=== PATIENT | female | born 1985 | race Caucasian/White ===

== ENCOUNTER 2020-07-16 00:02 | Observation (INO) | payer OTHER, SELFPAY ==
[2020-07-16] VITALS (11 sets, daily range): BP systolic 105–166; BP diastolic 59–86; PULSE 73–100; RESP 10–18; TEMP 36.3–37.1; O2SAT 97–100; BMI 24.7
--- NOTE | ~2020-07-16 | CT_ITS ---
EXAMINATION: CT abdomen pelvis w con INDICATION: Left lower quadrant pain TECHNIQUE: Computed tomographic images of the abdomen and pelvis were obtained after the administrati on of 100 cc of Omnipaque 350 intravenous contrast. The dose-length product (DLP) was 355.85 mGy-cm. Automated exposure control and iterative reconstruction technique were employed. COMPARISON: None available FINDINGS: The lung bases are clear. The heart size is normal. The gallbladder is surgically absent. T here is mild enlargement of the common bile duct and central intrahepatic ducts which is likely due t o post cholecystectomy state. The liver, spleen, pancreas, and adrenal glands are normal. Streak cecile fact from thoracolumbar fusion hardware partially obscures visualization of the left kidney however t he kidney appears normal. The right kidney is unremarkable. The mildly dilated appendix measures up t o 8 mm. There is mild edematous stranding of the periappendiceal fat. No pathologically enlarged abdo lorne or pelvic lymph nodes are identified. There is no free intraperitoneal gas or evidence of bowel obstruction. A moderate volume of colonic stool is present. IMPRESSION: 1. CT findings suggestive of acute appendicitis. Recommend clinical correlation. These findings and r ecommendations were discussed with Dr. Moises Kerr MD in the Emergency Department at 0126 hour s on 07/16/2020 by the [employer] Radiologist. Reviewed, dictated and finalized at location A. CUSTODIAN IMPRESSION: 1. CT findings suggestive of acute appendicitis. Recommend clinical correlation . These findings and recommendations were discussed with Dr. Moises Kerr MD in the Emergency Department at 0126 hours on 07/16/2020 by the [employer] Radio logist.
--- NOTE | 2020-07-16 00:39 | ED.ABDPAIN ---
HPI - Abdominal Pain General Chief Complaint: Abdominal Pain Stated Complaint: vomiting, stomach pain Time Seen by Provider: 07/16/20 00:16 History of Present Illness HPI narrative: Patient is a 35-year-old female who presents ER with abdominal pain. Ongoing for the last week. Sharp and cramping. Looking the epigastrium and left lower quadrant. No fevers or chills or sweats. Mild nausea and vomiting. Without diarrhea. Has not found any alleviating factors. Worse with movement. Eating does not modify her discomfort. Related Data Home Medications Medication Instructions Recorded Confirmed lorazepam 1 mg tablet 1 mg PO TID PRN 08/05/19 04/17/20 Allergies Allergy/AdvReac Type Severity Reaction Status Date / Time hydrocodone AdvReac Severe Dizziness Verified 04/17/20 15:25 Review of Systems Review of Systems: All systems reviewed & are unremarkable except as noted in HPI and below Constitutional: Constitutional: Denies chills and Denies fever(s) Gastrointestinal: Gastrointestinal: Reports abdominal pain, Denies diarrhea, Reports nausea and Reports vomiting Genitourinary: Genitourinary: Denies nocturia and Denies dysuria PMFSH Past Medical History Medical History (Updated 07/16/20 @ 01:54 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) Cholecystitis Surgical History Surgical History (Updated 07/16/20 @ 00:40 by Moises Kerr MD) H/O spinal fusion History of cholecystectomy Family History Family History Mother Colon cancer Grandparent Ovarian cancer Grandparent Heart disease Malignant neoplasm of prostate Grandparent Breast cancer Father Hyperlipidemia Social History Social History Smoking packs per day: 0.5 Smoking cigarettes per day: 10.0 Years smoked: 10 Smoking pack-years: 5.00 Smoking status: Current some day smoker Tobacco type: cigarettes Second hand tobacco smoke exposure: No Alcohol intake: current Drinks per week: 3 Substance use: never Substance use type: does not use Additional occupation/education comments: Anitalist Gender identity (if verbalized by the patient): Female Exam Narrative: Exam Narrative: GENERAL: Uncomfortable-appearing, well-nourished, and in no acute distress. HEAD: Normocephalic, atraumatic. ENT: Mucous membranes moist. CHEST: Clear to auscultation. No respiratory distress. HEART: Regular rate and rhythm. Normal peripheral pulses. ABDOMEN: Soft, mildly tender in the epigastrium and moderately tender in left lower quadrant and right lower quadrant, nondistended. EXTREMITIES: Normal range of motion. No edema. SKIN: Warm, dry, no rash. NEURO: Alert and oriented x3. Course Course Emergency Course: Pain improved with morphine but still comes in waves. Repeat exam of abdomen with localizing right lower quadrant tenderness. Consistent with CT imaging showing appendicitis. Will contact general surgery. Reevaluation(s) Reevaluation #1: Discussed case with Dr. Rodriges. He is excepted patient for admission to his service. Dwayne ordered for antibiotic coverage. Patient will remain n.p.o. and will receive IV fluids and pain medications. Date: 07/16/20 Time: 01:54 Vital Signs Vital signs: Vital Signs Temperature 98.0 F 07/16/20 00:04 Pulse Rate 92 07/16/20 00:04 Respiratory Rate 15 07/16/20 00:04 Blood Pressure 110/86 07/16/20 00:04 Pulse Oximetry 100 07/16/20 00:04 Temperature 98.0 F 07/16/20 00:04 Pulse Rate 78 07/16/20 01:16 CORRECTIONAL FOOD SERVICE SUPERVISOR Respiratory Rate 18 07/16/20 01:16 CORRECTIONAL FOOD SERVICE SUPERVISOR Blood Pressure 116/72 07/16/20 01:16 CORRECTIONAL FOOD SERVICE SUPERVISOR Pulse Oximetry 100 07/16/20 01:16 CORRECTIONAL FOOD SERVICE SUPERVISOR MDM - Abdominal Pain Lab Data Result diagrams: 07/16/20 00:42 07/16/20 00:42 Labs: Lab Results 07/16/20 07/16/20 Range/Units 00:42 00:42 WBC 19.6 H (4.5-10.0) K/mm3 RBC 5.21 (4.2-5.4) M/mm3 H
[2020-07-16] MEDS: ONDANSETRON INJ 4 MG/2 ML VIAL IV PUSH (00:42)
[2020-07-16] MEDS: MORPHINE SULFATE (*CRX) 4 MG/ML INJ IV PUSH (00:42)
--- NOTE | 2020-07-16 00:45 | PC.NURSE ---
pt states she isn't able to urinate at this time, refused straight cath.
[2020-07-16 00:49] LABS: Basophils Absolute Auto 0.1 K/mm3 (0.0-0.1); Basophils Percent Auto 0.3 % (0.2-1.2); Eosinophils Percent Auto 0.1 % (0-4.4); Hematocrit 45.7 % (37.0-47.0); Hemoglobin 15.4 g/dL (12.0-15.0); Immature Granulocyte Absolute 0.08 K/mm3 (0.00-0.031); Immature Granulocyte Percent A 0.4 % (0-0.5); Lymphocytes Absolute Auto 2.13 K/mm3 (0.9-3.2); Lymphocytes Percent Auto 10.9 % (18.3-44.2); Mean Corpuscular HGB Conc 33.7 g/dl (32-36); Mean Corpuscular Hemoglobin 29.6 pg (26-34); Mean Corpuscular Volume 87.7 fl (80-100); Mean Platelet Volume 9.6 fl (7.4-10.4); Monocytes Percent Auto 5.3 % (2.6-8.5); Neutrophils Absolute Auto 16.3 K/mm3 (1.3-6.7); Platelet Count Result 466 k/mm3 (150-375); Red Blood Count 5.21 M/mm3 (4.2-5.4); Red Cell Distribution Width 13.5 % (11.5-14.5); White Blood Count 19.6 K/mm3 (4.5-10.0)
[2020-07-16 01:04] LABS: Alanine Aminotransferase 24 U/L (4-35); Alkaline Phosphatase 78 U/L (38-126); Anion Gap 12 mmol/L (8-16); Aspartate Amino Transferase 32 U/L (14-36); Bilirubin,Total 0.2 mg/dL (0.2-1.3); Blood Urea Nitrogen 13 mg/dL (7-17); Calcium 9.8 mg/dL (8.4-10.2); Carbon Dioxide 26 mmol/L (22-30); Chloride 104 mmol/L (98-107); Estimated Glomerular Filt Rate > 60; Glucose 120 mg/dL (65-105); Lipase 64 U/L (23-300); Potassium 4.3 mmol/L (3.4-5.0); Sodium 142 mmol/L (137-145)
--- NOTE | 2020-07-16 01:17 | PC.NURSE ---
pt states she still isn't able to give urine sample at this time. pt refused straight cath.
[2020-07-16] MEDS: PROMETHAZINE HCL 25 MG/ML AMPUL 12.5 MG IV PUSH (01:20)
--- NOTE | 2020-07-16 01:21 | PC.NURSE ---
pt states she isn't able to urinate at this time, refused straight cath.
[2020-07-16] MEDS: SODIUM CHLORIDE 0.9% IV 1,000 ML 999 ML (01:40)
--- NOTE | 2020-07-16 01:41 | PC.NURSE ---
1L NS started on pt per verbal order md wolf
--- NOTE | 2020-07-16 02:40 | ADMGEN ---
This patient, Fifi Trujillo, was admitted to Medical Room 342-01. Patient/family oriented to hospital policies and general routines including ID bracelet, bed and alarms, visiting hours, pain management, procedures, bathroom and other care routines, personal items, smoking policy, room service/diet, and visiting hours. Information on how to activate the Rapid Response Team has been discussed. Patient/Family are encouraged to report perceived risks to care and to ask questions if they do not understand what they are told or what they should do.
[2020-07-16] MEDS: SODIUM CHLORIDE 0.9% IV 1,000 ML 125 ML IV CONT (02:43)
[2020-07-16 03:11] LABS: Add Urine Microscopic? YES; Appearance Urine Clear (Clear); Bilirubin Urine Negative (Negative); Blood Urine Negative (Negative); Color Urine Yellow (Yellow); Glucose Urine UA Negative (Negative); Ketones Urine 2+ mg/dL (Negative); Leukocyte Esterase Ur Negative LEU/UL (Negative); Mucus Urine Rare /lpf; Nitrate Urine Negative (Negative); Protein Urine Negative (Negative); RBC Urine 0-2 /hpf (0-2); Squamous Epithelial Cell Urine Moderate /hpf (Few); Urobilinogen Urine Negative mg/dL (<2.0); WBC Urine 0-3 /hpf
[2020-07-16 03:14] LABS: Specific Grav Ur > 1.060 (1.001-1.035)
[2020-07-16 06:33] LABS: Beta HCG Quantitative < 2.39 mIU/ML
--- NOTE | 2020-07-16 07:09 | PM.SD ---
Same Day Admit/Disch: HPI History of Present Illness Chief complaint: appendicitis Narrative: Fifi Trujillo is a 35 year old female who came to the emergency room last night with a 4 day history of abdominal pain. The pain was mostly in the upper abdomen as well as the left lower quadrant. Mild nausea. No fever or chills. In the emergency room [place] [id number]. She had localizing tenderness and more pain in the right lower quadrant. CT scan of the abdomen and pelvis was very indicative of acute appendicitis. She is taken to surgery now for laparoscopic appendectomy. FOR[facility] Past Medical History Medical History Anxiety Cholecystitis Migraine Scoliosis Surgical History Surgical History H/O spinal fusion History of cholecystectomy Family History Family History Mother Colon cancer Grandparent Ovarian cancer Grandparent Heart disease Malignant neoplasm of prostate Grandparent Breast cancer Father Hyperlipidemia Social History Social History Smoking packs per day: 0.5 Smoking cigarettes per day: 10.0 Years smoked: 10 Smoking pack-years: 5.00 Smoking status: Current every day smoker Tobacco type: cigarettes Second hand tobacco smoke exposure: No Alcohol intake: current Drinks per week: 3 Substance use: never Substance use type: does not use Additional occupation/education comments: Anitalist Gender identity (if verbalized by the patient): Female Sexual Orientation (if Verbalized by the Patient): Straight or Heterosexual Spiritual care concerns: No Same Day Admit/Disch: Med Pre-admit Medications Home Medications Medication Instructions Recorded Confirmed Type lorazepam 1 mg tablet 1 mg PO TID PRN 08/05/19 07/16/20 History ondansetron 4 mg disintegrating 4 mg PO Q8H PRN #30 tablet 04/17/20 07/16/20 Rx tablet sumatriptan succinate 100 mg tablet See Rx Instructions PO .COMPLEX 04/17/20 07/16/20 Rx #27 tablet oxycodone-acetaminophen 0.5 - 1 tablet PO Q6H PRN #10 07/16/20 Rx tablet Exam Const: General: cooperative, healthy appearing, no acute distress, alert, awake, ill appearing and uncomfortable Nutritional Appearance: thin Orientation/consciousness: patient oriented x3 Limitations: no limitations HENMT: Head: normocephalic and atraumatic Mouth: Yes Normal oral and palatal mucosa present Eyes: Conjunctivae: conjunctivae normal Pupils: Equal, round and reactive pupils present EOM: EOMs intact bilaterally Neck: Neck: normal visual inspection, no lymphadenopathy and nontender Resp: Effort & Inspection: normal respiratory effort Auscultation: clear to auscultation bilaterally Cardio: Rate: regular rate Rhythm: regular rhythm Heart sounds: no gallops, no murmurs and no rubs GI: Inspection: non-distended and incision ( lap choly trocar sites) GI Palp: Yes Soft to palpation, Yes Tenderness to palpation present (GI) ( right lower quadrant), Yes Guarding due to palpation present (GI), No Hepatomegaly present and No Splenomegaly present Auscultation: normal bowel sounds Skin: Lesions: no lesions Rashes: no rashes Neuro: General: no focal motor deficits and CN's II-XI intact bilaterally Cranial nerves: Yes Equal, round and reactive pupils present, Yes Bilaterally intact EOM present, Yes facial symmetry and Yes Midline tongue present Speech: normal speech Motor exam (neuro): 5/5 motor strength present throughout and Motor abnormalities not present Extrem: General: no clubbing, cyanosis or edema and edema Psych: Affect: normal affect Thought process: Normal thought process present Insight: Good insight present (Psych) DS: Data Data Completed and Pending Labs on day of discharge: Labs from [facility]
--- NOTE | 2020-07-16 07:14 | WPDANESEPPF ---
Anes - Initial Pre Proc Eval Procedure: Operation Date: 07/16/20 08:00 Proposed Procedures p Laparoscopic Appendectomy - Reid Rodriges MD Date/Time: 07/16/20 07:14 Surgeon: Reid Rodriges MD Pre Op Diagnosis: appendicitis Patient Data Age: 35 Gender: F Height: 1.7 m Weight: 71.8 kg Last Vital Signs Temp 36.5 C 07/16/20 02:41 Pulse 80 07/16/20 02:41 Resp 18 07/16/20 02:41 BP 105/59 L 07/16/20 02:41 Pulse Ox 100 07/16/20 02:41 Allergies Allergy/AdvReac Type Severity Reaction Status Date / Time hydrocodone AdvReac Severe Dizziness Verified 07/16/20 02:45 Home Medications Medication Instructions Recorded Confirmed Type lorazepam 1 mg tablet 1 mg PO TID PRN 08/05/19 07/16/20 History ondansetron 4 mg disintegrating 4 mg PO Q8H PRN #30 tablet 04/17/20 07/16/20 Rx tablet sumatriptan succinate 100 mg tablet See Rx Instructions PO .COMPLEX 04/17/20 07/16/20 Rx #27 tablet Laboratory Tests 07/16/20 07/16/20 07/16/20 00:42 00:42 02:39 WBC 19.6 K/mm3 H K/mm3 (4.5-10.0) RBC 5.21 M/mm3 M/mm3 (4.2-5.4) Hgb 15.4 g/dL H g/dL (12.0-15.0) Hct 45.7 % % (37.0-47.0) MCV 87.7 fl fl (80-100) MCH 29.6 pg pg (26-34) MCHC 33.7 g/dl g/dl (32-36) RDW 13.5 % % (11.5-14.5) Plt Count 466 k/mm3 H k/mm3 (150-375) MPV 9.6 fl fl (7.4-10.4) Immature Gran % (Auto) 0.4 % % (0-0.5) Neut % (Auto) 83.0 % H % (45.5-73.1) Lymph % (Auto) 10.9 % L % (18.3-44.2) [place] % (Auto) 5.3 % % (2.6-8.5) Eos % (Auto) 0.1 % % (0-4.4) Baso % (Auto) 0.3 % % (0.2-1.2) Lymph # (Auto) 2.13 K/mm3 K/mm3 (0.9-3.2) [place] # (Auto) 1.0 K/mm3 H K/mm3 (0.1-0.6) Eos # (Auto) 0.0 K/mm3 K/mm3 (0-0.3) Baso # (Auto) 0.1 K/mm3 K/mm3 (0.0-0.1) Abs Immat Gran (auto) 0.08 K/mm3 H K/mm3 (0.00-0.031) Absolute Neuts (auto) 16.3 K/mm3 H K/mm3 (1.3-6.7) Absolute Nucleated RBC 0.0 K/mm3 K/mm3 (0.0-0.012) Nucleated RBC % 0.0 % % (0.0-0.2) Sodium 142 mmol/L mmol/L (137-145) Potassium 4.3 mmol/L mmol/L (3.4-5.0) Chloride 104 mmol/L mmol/L (98-107) Carbon Dioxide 26 mmol/L mmol/L (22-30) Anion Gap 12 mmol/L mmol/L (8-16) BUN 13 mg/dL mg/dL (7-17) Creatinine 0.60 mg/dL L mg/dL (0.7-1.0) Estim Creat Clear Calc Not Reportable Estimated GFR > 60 (59 - ) Glucose 120 mg/dL H mg/dL (65-105) Calcium 9.8 mg/dL mg/dL (8.4-10.2) Total Bilirubin 0.2 mg/dL mg/dL (0.2-1.3) AST 32 U/L U/L (14-36) ALT 24 U/L U/L (4-35) Alkaline Phosphatase 78 U/L U/L (38-126) Total Protein 9.0 g/dL H g/dL (6.3-8.2) Albumin 5.0 g/dL g/dL (3.5-5.1) Lipase 64 U/L U/L (23-300) Beta HCG, Quant Urine Color Yellow (Yellow) Urine Appearance Clear (Clear) Urine pH 8.0 (5.0-9.0) Ur Specific Thornton > 1.060 H (1.001-1.035) Urine Protein Negative mg/dL mg/dL (Negative) Urine Glucose (UA) Negative mg/dL mg/dL (Negative) Urine Ketones 2+ mg/dL H mg/dL (Negative) Ur Blood (Man) Negative (Negative) Urine Nitrate Negative (Negative) Urine Bilirubin Negative (Negative) Urine Urobilinogen Negative mg/dL mg/dL (<2.0) Leukocyte Esterase Rfl Negative RONIT/UL RONIT/UL (Negative) Urine RBC 0-2 /hpf /hpf (0-2) Urine WBC 0-3 /hpf /hpf Ur Squamous Epith Cells Moderate /hpf H /hpf (Few) Urine Mucus Rare /lpf /lpf 07/16/20 05:13 WBC RBC Hgb Hct MCV MCH MCHC RDW
--- NOTE | 2020-07-16 07:14 | WPDHPUPDATE1 ---
History and Physical Update Update Date/Time: 07/16/20 07:14 History and Physical has been reviewed, including an updated exam of the patient. There are NO changes in the patient's condition. Risks, benefits, and alternatives have been discussed and questions answered. Patient agrees to proceed with procedure.
--- NOTE | 2020-07-16 07:19 | PC.NURSE ---
PT TRANSFER TO SURGERY PER BED. CHART AND CONSENT WITH PATIENT. BELONGINGS LOCKED IN CLOSET.
[2020-07-16] MEDS: BUPIVACAINE/EPINEPHRINE 0.5% 10 ML VIAL 20 ML INFILTRATE (08:23)
[2020-07-16] MEDS: LACTATED RINGERS 1,000 ML 30 ML IV CONT ×2 (08:30)
--- NOTE | 2020-07-16 08:38 | P.OP_ITS ---
Procedure Note - Detailed Date of procedure: 07/16/20 Pre-op diagnosis: appendicitis acute appendicitis Post-op diagnosis: same Procedure performed: Laparoscopic appendectomy Description of procedure: The patient was taken to surgery and induced into general anesthesia. The abdomen was prepped and draped. Trocars were placed in the usual fashion using 0.5% Marcaine with epinephrine and applied Medical optical trocars. A 5 mm camera was used. The patient was placed in Trendelenburg with the right side elevated. The appendix was found and was elevated anteriorly. Dissection was carried out in the mesoappendix. The mesoappendix was dissectedand the appendiceal vessels cauterized for hemostasis. Eventually the base of the appendix was skeletonized. The appendix was ligated at its base with a Vicryl endo-loop. It was amputated just above the ligature and the mucosa of the appendiceal stump was cauterized. The appendix was immediately placed in an Endo-Catch bag and retrieved through the 10 11 left lower quadrant trocar site. We replaced the 10 11 trocar and reviewed the right lower quadrant and areas of dissection. All looked good with no evidence of bleeding or other problems. We evacuated CO2 and removed the trocar sleeves. Skin wounds were closed with subcuticular 4 O Monocryl skin suture. The wounds were dressed with Exofin cavazos rgical adhesive. The patient was awakened and taken to recovery in good condition. Sponge and needle counts were correct x2. Anesthesia: GETA and local (0.5% Marcaine with epinephrine) Surgeon: Reid Rodriges MD Home Office Claims Examiner: Paul HOOKS Estimated blood loss (mL): 5 Drains: No Packing: No Pathology: yes (Appendix) Complications: None Condition: stable Disposition: PACU Findings: Acute non perforated appendicitis
--- NOTE | 2020-07-16 15:06 | PC.NURSE ---
1400 tolerated full liquid diet with no problems noted.
== END 2020-07-16 14:25 | disposition home or self-care (01) ==
LOC: ANHED 01:54 → ANH3MED 02:14
PROVIDERS: Admitting Provider Surgery; Emergency Provider Emergency Medicine; PCP Family Medicine; Visit Provider Surgery
PROC: 0DTJ4ZZ Resection of Appendix, Percutaneous Endoscopic Approach (ICD-10-PCS; CPT 44970; principal; 2020-07-16 08:00)
DX: K35.80 Unspecified acute appendicitis (principal); F17.210 Nicotine dependence, cigarettes, uncomplicated
CPT/HCPCS: 44970; 36415; 74177; 80053; 81001; 83690; 84702; 85025; 88304; 96361; 96365; 96375; 96376; 99285; G0378; J0131; J1100; J2250; J2270; J2405; J2543; J2550; J2704; J3010; J7030; J7120; Q9967

== ENCOUNTER 2022-08-29 15:12 | Emergency (ER) | payer OTHER, SELFPAY ==
--- NOTE | 2022-08-29 15:22 | ECG_ITS ---
Measurements Intervals [place] Rate: 98 P: 7 MD: 134 QRS: 58 QRSD: 75 T: 33 QT: 323 QTc: 414 Interpretive Statements SINUS RHYTHM NONSPECIFIC ST AND T-WAVE ABNORMALITY NO PREVIOUS ECG AVAILABLE FOR COMPARISON Electronically Signed On 08-29-2022 16:12:41 ASSISTANT PURCHASING MANAGER by Tc Kirkpatrick M.D.
[2022-08-29 15:23] VITALS: BP 125/60; PULSE 101; RESP 18; TEMP 36.2; O2SAT 99
[2022-08-29 15:42] LABS: Basophils Absolute Auto 0.1 K/mm3 (0.0-0.1); Basophils Percent Auto 0.5 % (0.2-1.2); Eosinophils Absolute Auto 0.1 K/mm3 (0-0.3); Eosinophils Percent Auto 0.8 % (0-4.4); Hematocrit 40.9 % (37.0-47.0); Hemoglobin 13.6 g/dL (12.0-15.0); Immature Granulocyte Absolute 0.03 K/mm3 (0.00-0.031); Immature Granulocyte Percent A 0.3 % (0-0.5); Lymphocytes Absolute Auto 2.24 K/mm3 (0.9-3.2); Lymphocytes Percent Auto 18.9 % (18.3-44.2); Mean Corpuscular HGB Conc 33.3 g/dl (32-36); Mean Corpuscular Hemoglobin 29.3 pg (26-34); Mean Corpuscular Volume 88.1 fl (80-100); Mean Platelet Volume 8.9 fl (7.4-10.4); Monocytes Absolute Auto 0.7 K/mm3 (0.1-0.6); Monocytes Percent Auto 6.3 % (2.6-8.5); Neutrophils Absolute Auto 8.7 K/mm3 (1.3-6.7); Neutrophils Percent Auto 73.2 % (45.5-73.1); Platelet Count Result 410 k/mm3 (150-375); Red Blood Count 4.64 M/mm3 (4.2-5.4); Red Cell Distribution Width 13.4 % (11.5-14.5); White Blood Count 11.8 K/mm3 (4.5-10.0)
[2022-08-29 15:52] LABS: Prothrombin Time 12.9 Seconds (11.1-14.7)
[2022-08-29 15:53] LABS: Partial Thromboplastin Time 29.1 SECONDS (22.3-36.8)
[2022-08-29 15:54] LABS: Alanine Aminotransferase 43 U/L (6-35); Albumin Level 4.6 g/dL (3.5-5.1); Alkaline Phosphatase 66 U/L (38-126); Anion Gap 8 mmol/L (8-16); Aspartate Amino Transferase 27 U/L (14-36); Bilirubin,Total 0.4 mg/dL (0.2-1.3); Blood Urea Nitrogen 11 mg/dL (7-17); Calcium 8.9 mg/dL (8.4-10.2); Carbon Dioxide 25 mmol/L (22-30); Chloride 107 mmol/L (98-107); Estimated CRCL calculation 106 ml/min; Estimated Glomerular Filt Rate > 60; Glucose 110 mg/dL (65-110); Lipase 81 U/L (23-300); Potassium 3.8 mmol/L (3.4-5.0); Sodium 140 mmol/L (137-145)
[2022-08-29 16:05] LABS: Troponin I < 0.012 ng/mL (0.000-0.034)
--- NOTE | 2022-08-29 16:10 | ED.GENADULT ---
HPI - General Adult General Chief complaint: Chest Pain Stated complaint: cp Time Seen by Provider: 08/29/22 15:40 History of Present Illness HPI narrative: 37-year-old female presents for evaluation of a reproducible right-sided chest pain which radiates to her back and is aggravated by movement, deep breathing, bending over. Patient has had significant spinal surgery and fusions throughout most of her thoracic spine. Patient has a history of sciatica. Patient has a history of recurrent musculoskeletal pain. The pain is reproducible along ribs 2 3 and 4 in both anterior and posterior portions. Related Data Allergies Allergy/AdvReac Type Severity Reaction Status Date / Time hydrocodone AdvReac Severe Dizziness Verified 03/20/22 08:51 Review of Systems Review of Systems: CONSTITUTIONAL: Denies fever, chills, or sweats. EYES: Denies visual changes, redness, or discharge. ENT: Denies rhinorrhea, congestion, sore throat, or otalgia. CARDIOVASCULAR: Denies chest pain, palpitations, or edema. RESPIRATORY: Denies cough or dyspnea. GASTROINTESTINAL: Denies abdominal pain, nausea, vomiting, or diarrhea. GENITOURINARY: Denies dysuria or hematuria. SKIN: Denies rash or itching. MUSCULOSKELETAL: Denies back pain, joint pain, or myalgia. NEUROLOGIC: Denies headache, numbness, or weakness. PSYCHIATRIC: Denies anxiety or depression. [facility] Past Medical History Medical History Anxiety Cholecystitis Migraine Scoliosis Surgical History Surgical History H/O spinal fusion History of cholecystectomy S/P laparoscopic appendectomy Family History Family History Mother Colon cancer Grandparent Ovarian cancer Grandparent Heart disease Malignant neoplasm of prostate Grandparent Breast cancer Father Hyperlipidemia Sibling No problems noted. 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 HEAD: Normocephalic, atraumatic. EYES: PERRLA and EOMI. ENT: Nares clear, no rhinorrhea or epistaxis. Mucous membranes moist. NECK: Supple. CHEST: Clear to auscultation. No respiratory distress. Tenderness to palpation along ribs 2 3 and 4 on the right side in both anterior and posterior segments. HEART: Regular rate and rhythm. No murmur heard. Normal peripheral pulses. ABDOMEN: Soft, nontender, nondistended, normal active bowel sounds. EXTREMITIES: Normal range of motion. No edema. SKIN: Warm, dry, no rash. NEURO: No focal deficits. Alert and oriented x3. PSYCH: Normal mood and affect. Course Vital Signs Vital signs: Vital Signs Temperature 97.1 F L 08/29/22 15:23 Pulse Rate 101 H 08/29/22 15:23 Respiratory Rate 18 08/29/22 15:23 Blood Pressure 125/60 08/29/22 15:23 Pulse Oximetry 99 08/29/22 15:23 Temperature 97.1 F L 08/29/22 15:23 Pulse Rate 101 H 08/29/22 15:23 Respiratory Rate 18 08/29/22 15:23 Blood Pressure 125/60 08/29/22 15:23 Pulse Oximetry 99 08/29/22 15:23 Medical Decision Making [facility] Narrative Medical decision making narrative: This appears to be a musculoskeletal chest pain and a low risk patient
[2022-08-29] MEDS: KETOROLAC 15 MG/ML VIAL (*BKC) IV PUSH (16:42)
[2022-08-29 16:51] VITALS: BP 120/87; PULSE 75; RESP 16; O2SAT 99
== END 2022-08-29 16:52 | disposition home or self-care (01) ==
PROVIDERS: Family Medicine; Emergency Provider Emergency Medicine; PCP Family Medicine
DX: R07.89 Other chest pain (principal); Z98.1 Arthrodesis status; F17.210 Nicotine dependence, cigarettes, uncomplicated; R94.31 Abnormal electrocardiogram [ECG] [EKG]
CPT/HCPCS: 36415; 80053; 83690; 84484; 85025; 85610; 85730; 93005; 96374; 99284; J1885

== ENCOUNTER 2022-09-18 14:05 | Outpatient (CLI) | payer OTHER, SELFPAY ==
--- NOTE | ~2022-09-18 | XR_ITS ---
XR lumbar spine 2-3V DATE: 09/18/2022 14:25 INDICATION: Back pain. Fusion for scoliosis. TECHNIQUE: AP, lateral and coned lateral lumbosacral views of the lumbar spine COMPARISON: None FINDINGS: Bilateral thoracolumbar spinal rods and pedicle screws terminating at L2. There is mild dextroscoliosis of the lumbar spine. Normal alignment of the lumbar vertebrae. No fracture or bone destruction or spondylolisthesis. Lumba r and lumbosacral interspaces are well preserved. The sacroiliac joints are intact. Clips overlie right upper quadrant, likely due to cholecystectomy. IMPRESSION: Thoracolumbar spinal rods terminating at the L2 level Mild dextroscoliosis of the lumbar spine Status post cholecystectomy Reviewed, dictated and finalized at location B. ITECTURE ANALYST
--- NOTE | ~2022-09-18 | XR_ITS ---
XR thoracic spine 2V DATE: 09/18/2022 14:24 INDICATION: Back pain. Fusion in 2000 for scoliosis TECHNIQUE: AP, lateral and swimmer views COMPARISON: None FINDINGS: Thoracolumbar spinal rods are noted from T2 to L2 bilaterally. There is mild levoscoliosis of the upper thoracic spine and more prominent dextroscoliosis of the thoracolumbar spine. No fracture or bone destruction is evident. No paraspinal soft tissue thickening is detected. Surgical clips, right upper quadrant, likely due to cholecystectomy. IMPRESSION: Thoracolumbar scoliosis and bilateral thoracolumbar spinal rods Reviewed, dictated and finalized at location B. GAGE CLOSING CLERK
== END 2022-09-18 14:06 | disposition home or self-care (01) ==
PROVIDERS: PCP Family Medicine; Visit Provider Nurse Practitioner Family
DX: M54.9 Dorsalgia, unspecified (principal); Z90.49 Acquired absence of other specified parts of digestive tract; M41.9 Scoliosis, unspecified
CPT/HCPCS: 72070; 72100